=== PATIENT | female | born 1975 | race Caucasian/White ===

== ENCOUNTER 2024-06-02 05:40 | Inpatient (IN) | payer OTHER ==
[2024-06-01 11:52] VITALS: BMI 27.4
[2024-06-02] MEDS: PHENAZOPYRIDINE HCL 100 MG TABLET (FP) PO ONE (06:51)
[2024-06-02] MEDS ORDERED: PROPOFOL 20 ML ONE (07:05)
[2024-06-02] MEDS ORDERED: MIDAZOLAM HCL 2 MG/2 ML SINGLE DOSE VIAL ONE (07:06)
[2024-06-02] MEDS ORDERED: ACETAMINOPHEN INJECTION 100 ML ONE (07:06)
[2024-06-02] MEDS ORDERED: ROCURONIUM BROMIDE 50 MG/5 ML SYRINGE ONE (07:06)
[2024-06-02] MEDS ORDERED: HYDROmorphone HCl 2 MG/ML VIAL ONE (07:44)
[2024-06-02] MEDS ORDERED: KETOROLAC TROMETHAMINE 30 MG/1 ML VIAL ONE (07:46)
[2024-06-02] MEDS ORDERED: ceFAZolin SODIUM 1 GM VIAL ONE (07:46)
[2024-06-02] MEDS ORDERED: DEXAMETHASONE SOD PHOSPHATE 4 MG/1 ML VIAL ONE (07:46)
[2024-06-02] MEDS ORDERED: LIDOCAINE HCL/PF 2% SDV 5ML VIAL ONE (07:46)
[2024-06-02] MEDS ORDERED: SUGAMMADEX SODIUM 200 MG/2 ML VIAL ONE (07:49)
[2024-06-02] MEDS: ceFAZolin SODIUM 1 GM VIAL IVPB ONE (08:00)
[2024-06-02] MEDS ORDERED: oxyCODONE HCL 5 MG TABLET PO PRN ×2 (08:32→09:38)
[2024-06-02] MEDS ORDERED: BISACODYL 5 MG TABLET.DR (FP) PO PRN (09:38)
[2024-06-02] MEDS ORDERED: DOCUSATE SODIUM 100 MG CAPSULE (FP) PO PRN (09:38)
[2024-06-02] MEDS ORDERED: SIMETHICONE 80 MG TAB.CHEW (FP) PO PRN (09:38)
[2024-06-02] MEDS: HYDROmorphone *PCA* 10MG/50ML DISP.SYRIN PCA SCH (10:00)
[2024-06-02] MEDS: ACETAMINOPHEN 1000 MG/100 ML BAG IVPB ONE (10:36)
[2024-06-02] MEDS ORDERED: TRANEXAMIC ACID 1000 MG/10 ML VIAL ONE (11:00)
[2024-06-02] MEDS: TRANEXAMIC ACID 1000 MG/10 ML VIAL IVPUSH ONE (11:00)
[2024-06-02] MEDS: CEFAZOLIN 2 GM in DEXTROSE 5%-WATER - 100 ML IVPB ONE (11:15)
[2024-06-02] MEDS: LACTATED RINGERS SOLUTION 1,000 ML IV SCH (11:36)
[2024-06-02] MEDS ORDERED: ONDANSETRON 4 MG/2 ML VIAL ONE (11:53)
[2024-06-02] MEDS: ONDANSETRON 4 MG/2 ML VIAL IVPUSH PRN (12:01)
[2024-06-02] MEDS: ACETAMINOPHEN 1000 MG/100 ML BAG IVPB SCH (16:33)
[2024-06-02] MEDS: IBUPROFEN (CALDOLOR) 800 MG/200 ML PREMIX BAGS IVPB SCH (18:18)
[2024-06-02] MEDS: CEFAZOLIN 1 GM/D5W 1 GM/50 ML BAG IVPB SCH (18:18)
[2024-06-02 18:40] LABS: HEMATOCRIT 36.5 % (32.4-45.2); HEMOGLOBIN 11.8 GM/dL (10.7-15.3); MCH 25.8 pg (25.7-33.7); MCHC 32.4 g/dl (32.0-36.0); MEAN CELL VOLUME 79.7 fl (80-96); MEAN PLT VOLUME 9.1 fl (7.5-11.1); PLATELET COUNT 220 10^3/uL (134-434); RBC 4.58 M/mm3 (3.60-5.2); RDW 15.2 % (11.6-15.6); WHITE BLOOD COUNT 11.6 K/mm3 (4.0-10.0)
[2024-06-02 19:32] LABS: POTASSIUM 4.4 mmol/L (3.5-5.1)
[2024-06-02 19:33] LABS: CALCIUM 8.5 mg/dL (8.5-10.1)
[2024-06-02 19:34] LABS: BLOOD UREA NITROGEN 8.3 mg/dL (7-18)
[2024-06-02 19:37] LABS: CREATININE 0.6 mg/dL (0.55-1.3)
[2024-06-03] MEDS: CEFAZOLIN 1 GM in DEXTROSE 5%-WATER - 50 ML IVPB SCH (02:46)
[2024-06-03] MEDS: IBUPROFEN 800 MG/8 ML IJ IVPB SCH ×2 (02:59→12:10)
[2024-06-03] MEDS: ENOXAPARIN NA (PORCINE) 40 MG/0.4 ML DISP.SYRIN SQ SCH (09:09)
[2024-06-03 09:26] LABS: HEMATOCRIT 34.9 % (32.4-45.2); HEMOGLOBIN 11.2 GM/dL (10.7-15.3); MCHC 32.2 g/dl (32.0-36.0); MEAN CELL VOLUME 80.9 fl (80-96); MEAN PLT VOLUME 9.8 fl (7.5-11.1); PLATELET COUNT 211 10^3/uL (134-434); RBC 4.31 M/mm3 (3.60-5.2); RDW 15.1 % (11.6-15.6); WHITE BLOOD COUNT 7.9 K/mm3 (4.0-10.0)
[2024-06-03 09:44] LABS: POTASSIUM 3.6 mmol/L (3.5-5.1)
[2024-06-03 09:47] LABS: CALCIUM 8.2 mg/dL (8.5-10.1)
[2024-06-03 09:48] LABS: BLOOD UREA NITROGEN 7.9 mg/dL (7-18)
[2024-06-03 09:51] LABS: CREATININE 0.9 mg/dL (0.55-1.3)
[2024-06-03] MEDS ORDERED: ACETAMINOPHEN 325 MG TABLET (FP) PO PRN (10:00)
[2024-06-03] MEDS ORDERED: IBUPROFEN 600 MG TABLET (FP) PO PRN (14:00)
[2024-06-03] MEDS: oxyCODONE HCL 5 MG TABLET PO PRN (22:40)
[2024-06-04 09:43] VITALS: BP 124/70; PULSE 74; RESP 17; TEMP 97.9
== END 2024-06-04 10:30 | disposition home or self-care (01) | DRG 519 ==
LOC: J2C 05:40 → J6S 12:01
PROVIDERS: ADMIT Obstetrics & Gynecology; ATTEND Obstetrics & Gynecology
PROC: 0UB00ZZ Excision of Right Ovary, Open Approach (ICD-10-PCS; 2024-06-02)
PROC: 0UT90ZZ Resection of Uterus, Open Approach (ICD-10-PCS; principal; 2024-06-02 07:30)
PROC: 0UT70ZZ Resection of Bilateral Fallopian Tubes, Open Approach (ICD-10-PCS; 2024-06-02 07:30)
DX: D25.9 Leiomyoma of uterus, unspecified (principal); N83.201 Unspecified ovarian cyst, right side
CPT/HCPCS: 36415; 80048; 81025; 85027; 86850; 86900; 86901; 88305-TC; 88307-TC; 94760; J0131